=== PATIENT | female | born 1975 | race Caucasian/White ===

== ENCOUNTER → 2016-12-27 | Outpatient (REF) | payer OTHER ==
[2016-12-27 16:10] LABS: ALBUMIN 3.6 GM/DL (3.2-5.2); ALKALINE PHOSPHATASE 60 U/L (45-117); ALT/SGPT 18 U/L (12-78); ANION GAP 5 MEQ/L (8-16); AST/SGOT 12 U/L (15-37); BILIRUBIN,TOTAL 0.2 MG/DL (0.2-1.0); BLOOD UREA NITROGEN 10 MG/DL (7-18); CALCIUM LEVEL 8.6 MG/DL (8.5-10.1); CARBON DIOXIDE LEVEL 31 MEQ/L (21-32); CHLORIDE LEVEL 103 MEQ/L (98-107); CHOLESTEROL LEVEL 175 MG/DL (<200); CREATININE FOR GFR 0.63 MG/DL (0.55-1.02); GLOMERULAR FILTRATION RATE > 60.0 (>58); GLUCOSE, FASTING 122 MG/DL (70-105); POTASSIUM SERUM 4.3 MEQ/L (3.5-5.1); SODIUM LEVEL 139 MEQ/L (136-145); TOTAL PROTEIN 6.6 GM/DL (6.4-8.2); TRIGLYCERIDES LEVEL 404 MG/DL (<150)
== END ==
LOC: M SFHCSACK 08:49
PROVIDERS: ATTEND Physician Assistant
DX: I10 Essential (primary) hypertension (principal); F41.9 Anxiety disorder, unspecified; Z79.891 Long term (current) use of opiate analgesic

== ENCOUNTER → 2017-01-05 | Outpatient (REF) | payer OTHER | LOC: M SFHCSACK 11:56 | PROVIDERS: ATTEND Physician Assistant | DX: R73.9 Hyperglycemia, unspecified (principal) ==

== ENCOUNTER 2017-02-28 13:41 | Emergency (ER) | payer OTHER ==
[~2017-02-28] VITALS: Ht 172.7 cm; Wt 74.4 kg
[2017-02-28] MEDS ORDERED: LISI-538 PO (14:08)
[2017-02-28] MEDS ORDERED: XANA0.5T PO (14:08)
[2017-02-28] MEDS ORDERED: OXYC60TA8 PO (14:08)
[2017-02-28] MEDS ORDERED: METO37.5 PO (14:08)
[2017-02-28] MEDS ORDERED: REGL10TA6 PO (14:08)
[2017-02-28 15:59] LABS: BASO % 0.1 % (0.0-1.0); EOS # 0.1 K/mm3 (0.0-0.50); EOS % 0.8 % (0.0-3.0); LARGE UNSTAINED CELL % 0.3 % (0.0-4.0); LYMPH # 1.4 K/mm3 (1.5-4.5); LYMPH % 8.5 % (24.0-44.0); MEAN CORPUSCULAR HEMOGLOBIN 29.7 pg (27.0-33.0); MEAN CORPUSCULAR HGB CONC 34.8 g/dl (32.0-36.5); MEAN CORPUSCULAR VOLUME 85.4 fl (80.0-96.0); MONO # 0.2 K/mm3 (0.0-0.8); MONO % 1.2 % (0.0-5.0); NEUTROPHILS # 14.5 K/mm3 (1.8-7.7); NEUTROPHILS % 89.2 % (36.0-66.0); PLATELET COUNT, AUTOMATED 370 k/mm3 (150-450); RED CELL DISTRIBUTION WIDTH 13.4 % (11.5-14.5); WHITE BLOOD COUNT 16.3 K/mm3 (4.0-10.0)
[2017-02-28 16:16] LABS: CONTROL LINE HCG INT CTR LINE PRESENT
[2017-02-28 16:23] LABS: ALBUMIN 4.3 GM/DL (3.2-5.2); ALKALINE PHOSPHATASE 64 U/L (45-117); ALT/SGPT 19 U/L (12-78); AMYLASE 216 U/L (25-115); ANION GAP 11 MEQ/L (8-16); AST/SGOT 13 U/L (15-37); BILIRUBIN,DIRECT 0.2 MG/DL (0.0-0.2); BILIRUBIN,TOTAL 0.6 MG/DL (0.2-1.0); BLOOD UREA NITROGEN 14 MG/DL (7-18); CALCIUM LEVEL 9.2 MG/DL (8.5-10.1); CARBON DIOXIDE LEVEL 25 MEQ/L (21-32); CHLORIDE LEVEL 101 MEQ/L (98-107); CREATININE FOR GFR 0.72 MG/DL (0.55-1.02); GLOMERULAR FILTRATION RATE > 60.0 (>58); GLUCOSE, FASTING 95 MG/DL (70-105); POTASSIUM SERUM 3.4 MEQ/L (3.5-5.1); SODIUM LEVEL 137 MEQ/L (136-145); TOTAL PROTEIN 7.6 GM/DL (6.4-8.2)
[2017-02-28] MEDS ORDERED: ISOVUE-370 76% 100ML VIAL (Q9967) As Ordered ONE (16:30)
--- NOTE | 2017-02-28 16:59 | REP ---
Clinical: Trauma . Comparison: 06/27/2012 . Findings: The ventricles, sulci, and cisterns are normal in position and appearance. Epstein-white differentiation is maintained. No acute intracranial hemorrhage, mass/mass effect, pathology or trauma/injury. No evidence for acute infarction. No extra-axial fluid collection. Calvarium is intact. Paranasal sinuses and mastoid air cells are clear. Impression: Normal noncontrast head CT. No evidence for acute intracranial pathology or trauma/injury. Signed by Erwin Herrera MD 02/28/2017 04:51 P
[2017-02-28] MEDS: NS 1,000 ML IV ONE (17:00)
--- NOTE | 2017-02-28 17:00 | REP ---
Clinical: Trauma . Technique: Axial noncontrast images from the skull base to the thoracic inlet with coronal and sagittal re-formations Findings: Normal alignment and lordosis is maintained. Cervical vertebral bodies including transverse processes and spinous processes are intact and there is no evidence for acute fracture / compression injury or subluxation. Spinal canal is patent. Posterior elements are intact. Paravertebral soft tissues are normal. Impression: Normal noncontrast cervical spine CT. No evidence for acute pathology or trauma/injury. Signed by Erwin Herrera MD 02/28/2017 04:52 P
--- NOTE | 2017-02-28 17:03 | REP ---
Clinical: Trauma. Technique: Axial contrast enhanced images from the thoracic inlet to the upper abdomen using 100 ml Isovue 370 intravenous contrast material with coronal and sagittal re-formations. Findings: The bilateral lung meadows are symmetric, well aerated, and clear. Incidental note is made of an azygos fissure. No pulmonary parenchymal consolidation/contusion, effusion or pneumothorax. Tracheobronchial tree is patent. No adenopathy. The mediastinum is normal and without evidence for injury. The thoracic aorta and heart/pericardium are unremarkable. Surrounding musculoskeletal structures are intact without evidence for fracture or injury. Impression: Normal contrast enhanced chest CT. No evidence for acute trauma/injury. No evidence for mediastinal or pleuroparenchymal process. Signed by Erwin Herrera MD 02/28/2017 04:55 P
--- NOTE | 2017-02-28 17:06 | REP ---
Clinical: Trauma. Technique: Axial contrast enhanced images from the lung bases to the pubic symphysis using 100 ml Isovue 370 intravenous contrast material with coronal and sagittal re-formations. Findings: Lung bases are clear. Visualized heart and pericardium are normal. There is no evidence for solid organ injury. Liver, spleen, pancreas, bilateral adrenal glands and kidneys are normal. The patient is status post cholecystectomy. The enteric system is without obstruction or acute inflammatory process. Pelvis demonstrates normal bladder and age-appropriate uterus/adnexa. No ascites. No free air. No adenopathy. Vascular structures are intact and normal. Musculoskeletal structures are normal for age and without evidence for trauma/injury. Impression: Normal contrast enhanced CT of the abdomen and pelvis. No evidence for acute trauma/injury or pathology. Signed by Erwin Herrera MD 02/28/2017 04:57 P
--- NOTE | 2017-02-28 17:31 | REP ---
Clinical: Trauma . Technique: AP, lateral, bilateral oblique views right ankle . Findings: No acute fracture or dislocation. Skeletal structures and joint spaces are intact and normal. Ankle mortise appears stable. No subcutaneous emphysema or radiodense foreign body. Impression: Normal right ankle radiograph series. No acute fracture or dislocation. Signed by Erwin Herrera MD 02/28/2017 05:23 P
--- NOTE | 2017-02-28 17:31 | REP ---
Clinical: Trauma. Technique: AP, lateral, bilateral oblique and sunrise views of the left knee. Comparison: 11/24/2011. Findings: Age-related changes are appreciated primarily involving the patella and associated patellofemoral joint space including fraying along the anterior patellar margin. There is no evidence for acute fracture dislocation. Prepatellar soft tissue swelling is suggested and possibly related to trauma. No obvious effusion. Impression: Age-related degenerative changes. Prepatellar soft tissue swelling. No acute fracture or dislocation. Signed by Erwin Herrera MD 02/28/2017 05:22 P
[2017-02-28] MEDS: ACETAMINOPHEN TAB 650MG DOSE (2X325MG) PO ONE (17:51)
[2017-02-28 18:12] LABS: METHADONE URINE NEGATIVE (NEGATIVE)
[2017-02-28 19:14] VITALS: BP 171/80
--- NOTE | 2017-02-28 21:39 | ECGEPIP ---
Stationary ECG Study [facility] - ED Test Date: 2017-02-28 Pat Name: SUSAN DUONG Department: Room: - Gender: F Educational/Development Assistant: nakia : 1975 Requested By: MEENA Akins Order Number: [id number] Reading MD: Robert Call Measurements Intervals [place] Rate: 112 P: 50 UT: 132 QRS: -26 QRSD: 94 T: 30 QT: 326 QTc: 445 Interpretive Statements SINUS TACHYCARDIA POSSIBLE LEFT ATRIAL ENLARGEMENT BORDERLINE LEFT AXIS DEVIATION ABNORMAL RHYTHM ECG Electronically Signed On 02-28-2017 21:39:42 EDT by Robert Call
== END 2017-02-28 19:20 | disposition home or self-care (01) ==
LOC: M ED 16:32
DX: S80.02XA Contusion of left knee, initial encounter (principal); S16.1XXA Strain of muscle, fascia and tendon at neck level, initial encounter; S06.0X0A Concussion without loss of consciousness, initial encounter; S93.401A Sprain of unspecified ligament of right ankle, initial encounter; V47.5XXA Car driver injured in collision with fixed or stationary object in traffic accident, initial encounter; Y92.410 Unspecified street and highway as the place of occurrence of the external cause; Y93.89 Activity, other specified; Y99.9 Unspecified external cause status; I10 Essential (primary) hypertension; F41.9 Anxiety disorder, unspecified; F17.200 Nicotine dependence, unspecified, uncomplicated; Z79.899 Other long term (current) drug therapy
CPT/HCPCS: 36415; 70450; 71260; 72125; 73564; 73610; 74177; 80048; 80076; 80306; 81001; 82150; 82550; 82553; 83605; 83690; 84703; 85025; 85610; 85730; 87040; 87086; 93005; 93041; 94760; 99285; G0480; Q9967

== ENCOUNTER → 2017-04-22 | Outpatient (REF) | payer OTHER ==
[~2017-04-22] MED LIST: LISI-538 PO; METO37.5 PO; OXYC60TA8 PO; REGL10TA6 PO; XANA0.5T PO
[2017-04-22 16:02] LABS: ALBUMIN 3.6 GM/DL (3.2-5.2); ALBUMIN/GLOBULIN RATIO 1.13 (1.00-1.93); ALKALINE PHOSPHATASE 69 U/L (45-117); ALT/SGPT 35 U/L (12-78); ANION GAP 5 MEQ/L (8-16); AST/SGOT 19 U/L (15-37); BILIRUBIN,TOTAL 0.2 MG/DL (0.2-1.0); BLOOD UREA NITROGEN 11 MG/DL (7-18); CALCIUM LEVEL 8.5 MG/DL (8.5-10.1); CARBON DIOXIDE LEVEL 28 MEQ/L (21-32); CHLORIDE LEVEL 104 MEQ/L (98-107); CHOLESTEROL LEVEL 132 MG/DL (<200); CREATININE FOR GFR 0.64 MG/DL (0.55-1.02); FREE T4 0.69 NG/DL (0.76-1.46); GLOMERULAR FILTRATION RATE > 60.0 (>58); GLUCOSE, FASTING 106 MG/DL (70-105); POTASSIUM SERUM 4.1 MEQ/L (3.5-5.1); SODIUM LEVEL 137 MEQ/L (136-145); TOTAL PROTEIN 6.8 GM/DL (6.4-8.2); TRIGLYCERIDES LEVEL 200 MG/DL (<150)
== END ==
LOC: M SFHCSACK 11:36
PROVIDERS: ATTEND Physician Assistant
DX: F41.9 Anxiety disorder, unspecified (principal); I10 Essential (primary) hypertension; E78.2 Mixed hyperlipidemia

== ENCOUNTER → 2017-08-24 | Outpatient (REF) | payer OTHER ==
[2017-08-24 20:10] LABS: ALBUMIN 3.5 GM/DL (3.2-5.2); ALBUMIN/GLOBULIN RATIO 1.09 (1.00-1.93); ALKALINE PHOSPHATASE 66 U/L (45-117); ALT/SGPT 74 U/L (12-78); ANION GAP 4 MEQ/L (8-16); AST/SGOT 18 U/L (7-37); BILIRUBIN,TOTAL 0.3 MG/DL (0.2-1.0); BLOOD UREA NITROGEN 15 MG/DL (7-18); CALCIUM LEVEL 8.8 MG/DL (8.5-10.1); CARBON DIOXIDE LEVEL 37 MEQ/L (21-32); CHLORIDE LEVEL 102 MEQ/L (98-107); CHOLESTEROL LEVEL 191 MG/DL (<200); FREE T4 0.84 NG/DL (0.76-1.46); GLOMERULAR FILTRATION RATE > 60.0 (>58); GLUCOSE, FASTING 89 MG/DL (70-105); POTASSIUM SERUM 3.7 MEQ/L (3.5-5.1); SODIUM LEVEL 143 MEQ/L (136-145); TOTAL PROTEIN 6.7 GM/DL (6.4-8.2); TRIGLYCERIDES LEVEL 226 MG/DL (<150)
[2017-08-25 09:22] LABS: BASO % 0.2 % (0.0-1.0); EOS # 0.1 10^3/uL (0.0-0.50); EOS % 0.6 % (0.0-3.0); IMMATURE GRANULOCYTE % 0.4 % (0-0); LYMPH # 3.4 10^3/uL (1.5-4.5); LYMPH % 34.8 % (24.0-44.0); MEAN CORPUSCULAR HEMOGLOBIN 28.9 pg (27.0-33.0); MEAN CORPUSCULAR HGB CONC 30.4 g/dl (32.0-36.5); MEAN CORPUSCULAR VOLUME 95.1 fl (80.0-96.0); MONO # 0.5 10^3/uL (0.0-0.8); MONO % 4.6 % (0.0-5.0); NEUTROPHILS # 5.9 10^3/uL (1.8-7.7); NEUTROPHILS % 59.4 % (36.0-66.0); PLATELET COUNT, AUTOMATED 360 10^3/uL (150-450); RED CELL DISTRIBUTION WIDTH 15.1 % (11.5-14.5); WHITE BLOOD COUNT 9.8 10^3/uL (4.0-10.0)
== END ==
LOC: M SFHCSACK 15:39
PROVIDERS: ATTEND Physician Assistant
DX: R73.9 Hyperglycemia, unspecified (principal); F41.9 Anxiety disorder, unspecified; E78.2 Mixed hyperlipidemia; Z13.21 Encounter for screening for nutritional disorder

== ENCOUNTER 2024-09-15 02:48 | Inpatient (IN) | payer BC, MEDICARE, OTHER, SELFPAY ==
[~2024-09-15] VITALS: Ht 177.8 cm; Wt 77.2 kg
[2024-09-15] VITALS (60 sets, daily range): BP systolic 102–153; BP diastolic 50–69; TEMP 99.9–101.7; O2SAT 96–100
[~2024-09-15 02:48] MED LIST changes: -LISI-538 PO; +LISI20TA33 PO
[2024-09-15] MEDS: NS (Normal Saline) 0.9% 1,000 ML IV ONE ×6 (03:10→14:16)
[2024-09-15] MEDS: [UNRECOGNIZED DRUG - OTHER] IV ONE (03:15)
[2024-09-15] MEDS: NS 0.9% IV ONE (03:15)
[2024-09-15 03:19] LABS: VENOUS BASE EXCESS -21.2 (-2.0-2.0); VENOUS HCO3 7.1 MMOL/L (23.0-27.0); VENOUS O2 SATURATION 75.3 % (60.0-80.0); VENOUS PARTIAL PRESSURE CO2 24.4 mmHg (38.0-50.0); VENOUS PARTIAL PRESSURE O2 49.2 mmHg (30.0-50.0); VENOUS PH 7.084 UNITS (7.330-7.430); VENOUS STANDARD HCO3 9.1 MMOL/L; VENOUS TOTAL CO2 7.9 MMOL/L (24.0-28.0)
[2024-09-15] MEDS: SODIUM BICARBONATE 8.4% INJ 50ML SYRINGE IV STA (03:24)
[2024-09-15] MEDS: ONDANSETRON 4MG 2ML VIAL IV ONE (03:30)
[2024-09-15] MEDS: HumuLIN R (REGULAR) INSULIN (NovoLIN R) **100U/ML** PER UNIT IV ONE (03:31)
[2024-09-15 03:32] LABS: BASO % 0.1 % (0.0-1.0); HEMATOCRIT 42.9 % (36.0-47.0); HEMOGLOBIN 13.5 g/dl (12.0-15.5); LYMPH % 4.6 % (24.0-44.0); MEAN CORPUSCULAR HEMOGLOBIN 29.3 pg (27.0-33.0); MEAN CORPUSCULAR HGB CONC 31.5 g/dl (32.0-36.5); MEAN CORPUSCULAR VOLUME 93.3 fl (80.0-96.0); MONO # 1.2 10^3/uL (0.0-0.8); MONO % 5.1 % (2.0-8.0); NEUTROPHILS # 20.1 10^3/uL (1.5-8.5); NEUTROPHILS % 89.3 % (36.0-66.0); PLATELET COUNT, AUTOMATED 382 10^3/uL (150-450); WHITE BLOOD COUNT 22.5 10^3/uL (4.0-10.0)
[2024-09-15] MEDS ORDERED: ADENOSINE 6MG 2ML INJECTION As Ordered ONE (03:43)
[2024-09-15] MEDS ORDERED: MIDAZOLAM INJ 2MG/2ML VIAL As Ordered ONE (03:47)
[2024-09-15 03:54] LABS: AMPHETAMINES LEVEL URINE NEGATIVE (NEGATIVE); BARBITURATES URINE NEGATIVE (NEGATIVE); BENZODIAZEPINES URINE NEGATIVE (NEGATIVE); CANNABINOIDS URINE NEGATIVE (NEGATIVE); COCAINE METABOLITE URINE NEGATIVE (NEGATIVE); METHADONE URINE NEGATIVE (NEGATIVE); OPIATES URINE NEGATIVE (NEGATIVE); OSMOLALITY SERUM 388 MOSM/KG (275-295); PHENCYCLIDINE URINE NEGATIVE (NEGATIVE)
[2024-09-15 03:56] LABS: CK-MB VALUE MASS 4.6 NG/ML (<3.6); ETHYL ALCOHOL (ETHANOL) < 0.003 % (0.000-0.010)
[2024-09-15 03:58] LABS: CPK CREATINE PHOSPHOKINASE 351 U/L (34-145); MB/CK RELATIVE INDEX 1.31 (< OR =4); SALICYLATE LEVEL < 3.0 MG/DL (<30)
[2024-09-15] MEDS ORDERED: METOPROLOL 5 MG/5 ML VIAL As Ordered ONE (03:59)
[2024-09-15 04:00] LABS: THYROID STIMULATING HORMONE 0.615 uIU/ML (0.55-4.78)
[2024-09-15] MEDS: MIDAZOLAM INJ 2MG/2ML VIAL IV ONE ×2 (04:00→09:58)
[2024-09-15] MEDS: ADENOSINE 6MG 2ML INJECTION IV STA ×3 (04:00→05:10)
[2024-09-15] MEDS ORDERED: DIGOXIN INJ 0.5 MG/2 ML AMP As Ordered ONE (04:07)
[2024-09-15] MEDS ORDERED: PHENYLEPHRINE HCL INJ 50 MG in D5W 500 ML IV SCH (04:20)
[2024-09-15 04:21] LABS: ACETONE/KETONE > 4.50 MMOL/L (0.02-0.27); ALBUMIN 3.6 G/DL (3.2-5.2); ALKALINE PHOSPHATASE 94 U/L (35-104); ALT/SGPT 79 U/L (7.0-40); AST/SGOT 24 U/L (<34); BILIRUBIN,DIRECT 0.2 MG/DL (<0.4); BILIRUBIN,TOTAL 0.3 MG/DL (0.3-1.2); BLOOD UREA NITROGEN 74 MG/DL (9-23); CALCIUM LEVEL 9.2 MG/DL (8.5-10.1); CARBON DIOXIDE LEVEL < 10.0 MMOL/L (20-31); CHLORIDE LEVEL 73 MMOL/L (98-107); CREATININE FOR GFR 3.43 MG/DL (0.55-1.30); GLOMERULAR FILTRATION RATE 15.1 (>58); MAGNESIUM LEVEL 3.2 MG/DL (1.8-2.4); POTASSIUM SERUM 4.9 MMOL/L (3.5-5.1); SODIUM LEVEL 123 MMOL/L (136-145); TOTAL PROTEIN 6.8 G/DL (5.7-8.2)
[2024-09-15] MEDS ORDERED: PHENYLEPHRINE 10MG/ML 1ML VIAL As Ordered ONE (04:22)
[2024-09-15] MEDS ORDERED: NOREPINEPHRINE 4MG IN D5 250ML 4 MG in IV 1 EA IV SCH ×2 (04:25→07:25)
[2024-09-15 04:31] LABS: GLUCOSE, FASTING 1008 MG/DL (60-100)
[2024-09-15] MEDS: AMIODARONE 150MG/3ML VIAL IVP STA (04:34)
[2024-09-15] MEDS: ROCURONIUM BROMIDE 50MG/5ML VIAL IV SCH (05:00)
[2024-09-15] MEDS: ETOMIDATE INJ 20MG/10ML VIAL IV STA (05:05)
[2024-09-15] MEDS: DIGOXIN INJ 0.5 MG/2 ML AMP IV STA (05:07)
[2024-09-15] MEDS: METOPROLOL 5 MG/5 ML VIAL IV STA ×2 (05:07→05:09)
[2024-09-15 05:22] LABS: CK-MB VALUE MASS 3.8 NG/ML (<3.6)
[2024-09-15 05:23] LABS: MB/CK RELATIVE INDEX 1.38 (< OR =4)
[2024-09-15] MEDS: MIDAZOLAM 100MG/100ML-0.9%NACL 100 MG in IV 1 EA IV SCH (05:26)
[2024-09-15] MEDS: NS (Normal Saline) 0.9% 1,000 ML IV SCH (05:57)
[2024-09-15 06:09] LABS: ABG BASE EXCESS -16.5 (-2.0-2.0); ABG HCO3 11.6 MMOL/L (22.0-26.0); ABG O2 SATURATION 93.6 % (95.0-99.0); ABG PARTIAL PRESSURE CO2 35.5 mmHg (35.0-45.0); ABG PARTIAL PRESSURE O2 86.1 mmHg (75.0-100.0); ABG TOTAL CO2 12.7 MMOL/L (22.0-29.0)
[2024-09-15] MEDS: INSULIN REGULAR IN 0.9 % NACL 100 UNIT in IV 1 EA IV SCH ×2 (06:09→22:08)
[2024-09-15 06:13] LABS: ABG pH (ARTERIAL) 7.133 UNITS (7.350-7.450)
[2024-09-15] MEDS ORDERED: INSULIN REGULAR IN 0.9 % NACL 100 UNIT in IV 1 EA IV SCH (07:25)
[2024-09-15] MEDS ORDERED: INSULIN IV RATE CHANGE DOCUMENTATION ML/HR XX SCH (07:25)
[2024-09-15] MEDS ORDERED: ALBUTEROL SULFATE 2.5MG/0.5ML INH NEB SOLN NEB PRN (07:25)
[2024-09-15] MEDS: INSULIN IV RATE CHANGE DOCUMENTATION ML/HR XX SCH ×2 (07:36→22:09)
[2024-09-15] MEDS ORDERED: DEXMEDETOMIDINE IV ONE (08:30)
[2024-09-15] MEDS ORDERED: cefTRIAXone SOD 1 GM in DEXTROSE 5% (D5W) ADV/MINI-BAG 50 ML IV ONE (09:00)
[2024-09-15 09:16] LABS: CREATININE FOR GFR 2.4 MG/DL (0.55-1.30); GLOMERULAR FILTRATION RATE 22.8 (>58); MAGNESIUM LEVEL 2.4 MG/DL (1.8-2.4); PHOSPHORUS LEVEL 4.7 MG/DL (2.5-4.9); POTASSIUM SERUM 3.8 MMOL/L (3.5-5.1)
[2024-09-15] MEDS: cefTRIAXone SOD 1 GM in DEXTROSE 5% (D5W) ADV/MINI-BAG 50 ML IV SCH (09:24)
[2024-09-15] MEDS: dexmedeTOMidine 200 MCG in IV 1 EA IV SCH (10:10)
[2024-09-15 10:17] LABS: ABG BASE EXCESS -0.7 (-2.0-2.0); ABG O2 SATURATION 96.8 % (95.0-99.0); ABG PARTIAL PRESSURE CO2 30.4 mmHg (35.0-45.0); ABG PARTIAL PRESSURE O2 86.5 mmHg (75.0-100.0); ABG STANDARD HCO3 23.9 MMOL/L. (22.0-26.0); ABG TOTAL CO2 22.9 MMOL/L (22.0-29.0); ABG pH (ARTERIAL) 7.477 UNITS (7.350-7.450)
[2024-09-15] MEDS ORDERED: FENTANYL DRIP LOCK BOX KEY 1 EACH XX PRN (10:35)
[2024-09-15] MEDS ORDERED: VANCOMYCIN HCL 500 MG in DEXTROSE 5% (D5W) MINI-BAG PLU 100 ML IV ONE (10:35)
[2024-09-15] MEDS: fentaNYL CITRATE/NaCl 1,000 MCG in IV 1 EA IV SCH (10:51)
[2024-09-15] MEDS: LORazepam 2 MG/ML 1ML VIAL IV PRN (10:58)
[2024-09-15] MEDS: PANTOPRAZOLE 40MG VIAL IV SCH (11:07)
[2024-09-15] MEDS: VANCOMYCIN 1,250 MG/250 ML IV BAG *LOAD IV ONE (11:50)
[2024-09-15 12:35] LABS: VENOUS HCO3 24.1 MMOL/L (23.0-27.0); VENOUS O2 SATURATION 95.2 % (60.0-80.0); VENOUS PARTIAL PRESSURE CO2 41.7 mmHg (38.0-50.0); VENOUS PARTIAL PRESSURE O2 79.3 mmHg (30.0-50.0); VENOUS STANDARD HCO3 23.6 MMOL/L; VENOUS TOTAL CO2 25.4 MMOL/L (24.0-28.0)
[2024-09-15 13:13] LABS: CALCIUM LEVEL 7.9 MG/DL (8.5-10.1); CREATININE FOR GFR 1.93 MG/DL (0.55-1.30); GLOMERULAR FILTRATION RATE 29.4 (>58); PHOSPHORUS LEVEL 1.8 MG/DL (2.5-4.9); POTASSIUM SERUM 3.4 MMOL/L (3.5-5.1)
[2024-09-15] MEDS ORDERED: KCL 20MEQ IN 100ML SWI (KRUN) 20 MEQ in IV 1 EA IV ONE (13:15)
[2024-09-15 13:34] LABS: MAGNESIUM LEVEL 2.1 MG/DL (1.8-2.4)
[2024-09-15] MEDS: D5W/LR 1,000 ML IV SCH (13:39)
[2024-09-15] MEDS: KCL 10MEQ/100ML SWI (KRUN) IV SCH (14:16)
[2024-09-15] MEDS: HEPARIN SOD (PORCINE) 5000UNITS/ML 1ML VIAL/SYRINGE SC SCH (15:04)
[2024-09-15] MEDS: POTASSIUM PHOSPHATE INJ 30 MMOL in D5W 500 ML IV ONE (17:06)
[2024-09-15 17:14] LABS: VENOUS BASE EXCESS 3.3 (-2.0-2.0); VENOUS O2 SATURATION 98.9 % (60.0-80.0); VENOUS PARTIAL PRESSURE CO2 42.6 mmHg (38.0-50.0); VENOUS PARTIAL PRESSURE O2 203.2 mmHg (30.0-50.0); VENOUS PH 7.435 UNITS (7.330-7.430); VENOUS STANDARD HCO3 27.5 MMOL/L; VENOUS TOTAL CO2 29.3 MMOL/L (24.0-28.0)
[2024-09-15 17:44] LABS: CALCIUM LEVEL 7.6 MG/DL (8.5-10.1); CREATININE FOR GFR 1.73 MG/DL (0.55-1.30); GLOMERULAR FILTRATION RATE 33.3 (>58); PHOSPHORUS LEVEL 1.7 MG/DL (2.5-4.9); POTASSIUM SERUM 3.6 MMOL/L (3.5-5.1)
[2024-09-15] MEDS ORDERED: GLUCOSE 4 GM CHEW PO PRN (18:15)
[2024-09-15] MEDS ORDERED: DEXTROSE 50% 50ML SYRINGE IV PRN (18:15)
[2024-09-15] MEDS ORDERED: GLUCAGON INJ 1MG VIAL SC PRN (18:15)
[2024-09-15] MEDS: ACETAMINOPHEN *IV* 1,000 MG in IV 1 EA IV PRN (18:27)
[2024-09-15] MEDS: INSULIN LISPRO (NovoLOG) PER UNIT SC SCH (20:09)
[2024-09-15] MEDS: LEVEMIR (INSULIN DETEMIR) 1 UNITS/0.01ML SC SCH (20:09)
[2024-09-15] MEDS: MIDAZOLAM INJ 2MG/2ML VIAL IV PRN (20:12)
[2024-09-15 21:00] LABS: VENOUS BASE EXCESS -4.8 (-2.0-2.0); VENOUS HCO3 17.3 MMOL/L (23.0-27.0); VENOUS O2 SATURATION 99.1 % (60.0-80.0); VENOUS PARTIAL PRESSURE CO2 24.2 mmHg (38.0-50.0); VENOUS PARTIAL PRESSURE O2 212.9 mmHg (30.0-50.0); VENOUS PH 7.473 UNITS (7.330-7.430); VENOUS STANDARD HCO3 20.6 MMOL/L; VENOUS TOTAL CO2 18.1 MMOL/L (24.0-28.0)
[2024-09-15 21:44] LABS: CALCIUM LEVEL 7.1 MG/DL (8.5-10.1); CREATININE FOR GFR 1.66 MG/DL (0.55-1.30); MAGNESIUM LEVEL 1.9 MG/DL (1.8-2.4); PHOSPHORUS LEVEL 4.4 MG/DL (2.5-4.9); POTASSIUM SERUM 3.9 MMOL/L (3.5-5.1)
[2024-09-16] VITALS (75 sets, daily range): BP systolic 84–189; BP diastolic 49–101; TEMP 97.7–100.8; O2SAT 93–99
[2024-09-16] MEDS ORDERED: TRAZ-252 PO (00:07)
[2024-09-16] MEDS ORDERED: CLON0.2T PO (00:07)
[2024-09-16 00:51] LABS: VENOUS BASE EXCESS -0.2 (-2.0-2.0); VENOUS HCO3 23.5 MMOL/L (23.0-27.0); VENOUS O2 SATURATION 98.4 % (60.0-80.0); VENOUS PARTIAL PRESSURE O2 164.6 mmHg (30.0-50.0); VENOUS PH 7.444 UNITS (7.330-7.430); VENOUS STANDARD HCO3 24.3 MMOL/L; VENOUS TOTAL CO2 24.5 MMOL/L (24.0-28.0)
[2024-09-16 01:23] LABS: CALCIUM LEVEL 7.4 MG/DL (8.5-10.1); CREATININE FOR GFR 1.67 MG/DL (0.55-1.30); GLOMERULAR FILTRATION RATE 34.7 (>58); PHOSPHORUS LEVEL 3.8 MG/DL (2.5-4.9); POTASSIUM SERUM 3.2 MMOL/L (3.5-5.1)
[2024-09-16] MEDS: KCL 10MEQ/100ML SWI (KRUN) 10 MEQ in IV 1 EA IV SCH (01:59)
[2024-09-16] MEDS: LR 1,000 ML IV SCH (01:59)
[2024-09-16] MEDS: POTASSIUM CHLORIDE 10% LIQ 20MEQ/15ML UDC PO ONE (01:59)
[2024-09-16 04:47] LABS: VENOUS BASE EXCESS 3.9 (-2.0-2.0); VENOUS HCO3 28.1 MMOL/L (23.0-27.0); VENOUS O2 SATURATION 87.9 % (60.0-80.0); VENOUS PARTIAL PRESSURE CO2 40.7 mmHg (38.0-50.0); VENOUS PARTIAL PRESSURE O2 52.2 mmHg (30.0-50.0); VENOUS PH 7.457 UNITS (7.330-7.430); VENOUS STANDARD HCO3 27.8 MMOL/L; VENOUS TOTAL CO2 29.4 MMOL/L (24.0-28.0)
[2024-09-16 04:51] LABS: HEMATOCRIT 30.2 % (36.0-47.0); MEAN CORPUSCULAR HEMOGLOBIN 29.1 pg (27.0-33.0); MEAN CORPUSCULAR HGB CONC 35.1 g/dl (32.0-36.5); PLATELET COUNT, AUTOMATED 162 10^3/uL (150-450); RED BLOOD COUNT 3.64 10^6/uL (4.00-5.40); WHITE BLOOD COUNT 4.6 10^3/uL (4.0-10.0)
[2024-09-16 05:23] LABS: HEMOGLOBIN 10.6 g/dl (12.0-15.5)
[2024-09-16 05:38] LABS: PROCALCITONIN 18.22 ng/ml
[2024-09-16 05:44] LABS: ALBUMIN 2.2 G/DL (3.2-5.2); BILIRUBIN,TOTAL 0.2 MG/DL (0.3-1.2); CALCIUM LEVEL 7.7 MG/DL (8.5-10.1); CREATININE FOR GFR 1.54 MG/DL (0.55-1.30); GLOMERULAR FILTRATION RATE 38.1 (>58); MB/CK RELATIVE INDEX 1.39 (< OR =4); PHOSPHORUS LEVEL 3.4 MG/DL (2.5-4.9)
[2024-09-16 05:56] LABS: ABG BASE EXCESS 2.3 (-2.0-2.0); ABG HCO3 25.7 MMOL/L (22.0-26.0); ABG PARTIAL PRESSURE CO2 35.3 mmHg (35.0-45.0); ABG PARTIAL PRESSURE O2 88.3 mmHg (75.0-100.0); ABG STANDARD HCO3 26.6 MMOL/L. (22.0-26.0); ABG TOTAL CO2 26.8 MMOL/L (22.0-29.0)
[2024-09-16 05:58] LABS: ANISOCYTOSIS 1+; EOSINOPHILS 1 % (0-3); HYPOCHROMASIA 1+; LYMPHOCYTES 20 % (16-44); MONOCYTES 4 % (0-5); NEUTROPHILS 63 % (28-66); PLATELET ESTIMATE NORMAL (NORMAL)
[2024-09-16] MEDS: LEVEMIR (INSULIN DETEMIR) 1 UNITS/0.01ML SC SCH (09:37)
[2024-09-16] MEDS: D5W 1,000 ML IV SCH (09:42)
[2024-09-16] MEDS ORDERED: VANCOMYCIN HCL 750 MG, VIAL MATE ADAPTER 1 EACH in NS 250 ML IV SCH (10:00)
[2024-09-16] MEDS: AZITHROMYCIN INJ 500 MG, VIAL MATE ADAPTER 1 EACH in NS 250 ML IV SCH (11:09)
[2024-09-16] MEDS: cloNIDine HCL 0.1 MG/24 HR PATCH TOP ONE (13:28)
[2024-09-16 14:06] LABS: CALCIUM LEVEL 8.4 MG/DL (8.5-10.1); CREATININE FOR GFR 1.48 MG/DL (0.55-1.30); GLOMERULAR FILTRATION RATE 39.9 (>58); PHOSPHORUS LEVEL 2.2 MG/DL (2.5-4.9); POTASSIUM SERUM 3.5 MMOL/L (3.5-5.1)
[2024-09-16] MEDS ORDERED: CLON0.3T PO (14:35)
[2024-09-16] MEDS ORDERED: HYDR12CA PO (14:36)
[2024-09-16] MEDS ORDERED: OXYC7.5T3 PO (14:36)
[2024-09-16] MEDS ORDERED: HOME MED LIST COMPLETE! XX SCH (14:40)
[2024-09-16] MEDS: LABETALOL 100MG/20ML VIAL IV STA (14:44)
[2024-09-16] MEDS: D5W/0.45% SODIUM CHLORIDE 1,000 ML IV ONE (15:08)
[2024-09-16] MEDS ORDERED: DEXTROSE 50% 50ML SYRINGE IV PRN (15:35)
[2024-09-16] MEDS ORDERED: GLUCOSE 4 GM CHEW PO PRN (15:35)
[2024-09-16] MEDS ORDERED: GLUCAGON INJ 1MG VIAL SC PRN (15:35)
[2024-09-16] MEDS: POTASSIUM PHOSPHATE INJ 30 MMOL in D5W 500 ML IV ONE (16:31)
[2024-09-16] MEDS: INSULIN LISPRO (NovoLOG) PER UNIT SC SCH (17:54)
[2024-09-16] MEDS: LABETALOL 100MG/20ML VIAL IV PRN (17:54)
[2024-09-16] MEDS: PROMETHAZINE 25MG/ML 1ML VIAL IV PRN (23:03)
[2024-09-17] VITALS (18 sets, daily range): BP systolic 149–186; BP diastolic 70–89; TEMP 98.9–100.6; O2SAT 90–98
[2024-09-17 05:49] LABS: EOS % 0.3 % (0.0-3.0); HEMATOCRIT 31.6 % (36.0-47.0); HEMOGLOBIN 10.6 g/dl (12.0-15.5); LYMPH # 1.1 10^3/uL (1.5-5.0); LYMPH % 17.5 % (24.0-44.0); MEAN CORPUSCULAR HEMOGLOBIN 28.5 pg (27.0-33.0); MEAN CORPUSCULAR HGB CONC 33.5 g/dl (32.0-36.5); MEAN CORPUSCULAR VOLUME 84.9 fl (80.0-96.0); MONO # 0.3 10^3/uL (0.0-0.8); NEUTROPHILS % 77.9 % (36.0-66.0); PLATELET COUNT, AUTOMATED 164 10^3/uL (150-450); RED BLOOD COUNT 3.72 10^6/uL (4.00-5.40); WHITE BLOOD COUNT 6.5 10^3/uL (4.0-10.0)
[2024-09-17 06:15] LABS: ALBUMIN 2.3 G/DL (3.2-5.2); BILIRUBIN,TOTAL 0.4 MG/DL (0.3-1.2); CALCIUM LEVEL 8.4 MG/DL (8.5-10.1); CREATININE FOR GFR 1.28 MG/DL (0.55-1.30); GLOMERULAR FILTRATION RATE 47.2 (>58); MAGNESIUM LEVEL 1.6 MG/DL (1.8-2.4); PHOSPHORUS LEVEL 3.4 MG/DL (2.5-4.9); POTASSIUM SERUM 2.9 MMOL/L (3.5-5.1)
[2024-09-17] MEDS: POTASSIUM CHLORIDE 10% LIQ 20MEQ/15ML UDC PO ONE (06:36)
[2024-09-17] MEDS: MAG SULF 1GM/100ML (MAG RUN) 1 GM in IV 1 EA IV ONE (06:36)
[2024-09-17] MEDS: KCL 10MEQ/100ML SWI (KRUN) 10 MEQ in IV 1 EA IV SCH (07:30)
[2024-09-17] MEDS: cloNIDine 0.1MG TABLET PO SCH (09:34)
[2024-09-17] MEDS: POTASSIUM CHLORIDE 10MEQ SR TABLET PO ONE ×2 (12:39→18:02)
[2024-09-17] MEDS: ENOXAPARIN 40MG/0.4ML SYRINGE (J1650 PER 10MG) SC SCH (12:39)
[2024-09-17 13:23] LABS: HEMOGLOBIN A1c > 14.0 % (4.0-6.0)
[2024-09-17] MEDS: INSULIN LISPRO (NovoLOG) PER UNIT SC SCH ×2 (18:02→20:59)
[2024-09-17] MEDS: cloNIDine 0.2 MG TAB PO SCH (20:06)
[2024-09-17] MEDS: traZODone 50 MG TAB PO SCH (20:10)
[2024-09-17] MEDS: PANTOPRAZOLE 40MG VIAL IV SCH (21:04)
[2024-09-17] MEDS: **hydrALAZINE** 50 MG TAB PO SCH (21:05)
[2024-09-17 22:08] LABS: BLOOD UREA NITROGEN 25 MG/DL (9-23); CALCIUM LEVEL 8.4 MG/DL (8.5-10.1); CARBON DIOXIDE LEVEL 29 MMOL/L (20-31); CHLORIDE LEVEL 108 MMOL/L (98-107); CREATININE FOR GFR 1.02 MG/DL (0.55-1.30); GLOMERULAR FILTRATION RATE > 60.0 (>58); GLUCOSE, FASTING 169 MG/DL (60-100); MAGNESIUM LEVEL 1.7 MG/DL (1.8-2.4); POTASSIUM SERUM 3.6 MMOL/L (3.5-5.1); SODIUM LEVEL 145 MMOL/L (136-145)
[2024-09-17] MEDS: ACETAMINOPHEN 325 MG TAB PO PRN (23:42)
[2024-09-18] VITALS: BP 130/61; TEMP 97.8; O2SAT 93
[2024-09-18] MEDS: MAG SULF 1GM/100ML (MAG RUN) 1 GM in IV 1 EA IV ONE ×2 (03:52→14:25)
[2024-09-18 04:00] VITALS: BP 139/74; TEMP 98.1; O2SAT 94
[2024-09-18 04:51] LABS: HEMATOCRIT 34.4 % (36.0-47.0); HEMOGLOBIN 10.9 g/dl (12.0-15.5); MEAN CORPUSCULAR HEMOGLOBIN 28.2 pg (27.0-33.0); MEAN CORPUSCULAR HGB CONC 31.7 g/dl (32.0-36.5); MEAN CORPUSCULAR VOLUME 88.9 fl (80.0-96.0); PLATELET COUNT, AUTOMATED 180 10^3/uL (150-450); RED BLOOD COUNT 3.87 10^6/uL (4.00-5.40)
[2024-09-18 05:10] LABS: BLOOD UREA NITROGEN 24 MG/DL (9-23); CALCIUM LEVEL 8.8 MG/DL (8.5-10.1); CARBON DIOXIDE LEVEL 26 MMOL/L (20-31); CHLORIDE LEVEL 104 MMOL/L (98-107); CREATININE FOR GFR 0.98 MG/DL (0.55-1.30); GLOMERULAR FILTRATION RATE > 60.0 (>58); GLUCOSE, FASTING 287 MG/DL (60-100); MAGNESIUM LEVEL 1.7 MG/DL (1.8-2.4); PHOSPHORUS LEVEL 2.2 MG/DL (2.5-4.9); POTASSIUM SERUM 3.6 MMOL/L (3.5-5.1); SODIUM LEVEL 142 MMOL/L (136-145)
[2024-09-18 08:00] VITALS: BP 160/92; TEMP 99.1; O2SAT 95
[2024-09-18] MEDS: CEFDINIR 300 MG CAP (OMNICEF) PO SCH (08:37)
[2024-09-18] MEDS: cloNIDine 0.1MG TABLET PO SCH (08:38)
[2024-09-18] MEDS: AZITHROMYCIN 250MG TABLET PO SCH (08:39)
[2024-09-18] MEDS: POTASSIUM CHLORIDE 10MEQ SR TABLET PO SCH (08:39)
[2024-09-18 12:00] VITALS: BP 123/61; TEMP 99.6; O2SAT 98
[2024-09-18] MEDS ORDERED: ISOVUE-370 76% 100ML VIAL As Ordered ONE (13:45)
[2024-09-18] MEDS: LOPERAMIDE 2 MG CAPLET PO ONE (14:24)
[2024-09-18] MEDS: PERCOCET 5MG/325MG TAB PO PRN (14:26)
[2024-09-18] MEDS: HYDROMORPHONE HCL 0.5 MG/ 0.5 ML SYRINGE IV ONE (14:27)
[2024-09-18] MEDS: FLUCONAZOLE 50MG TABLET PO ONE (14:31)
[2024-09-18] MEDS: ASPIRIN 81MG CHEW TABLET PO SCH (15:07)
[2024-09-18 16:00] VITALS: BP 154/78; TEMP 99.2; O2SAT 95
[2024-09-18] MEDS: LACTOBACILLUS ACIDOPHILUS CAP (BACID) PO SCH (17:07)
[2024-09-18] MEDS: METOPROLOL TART 25 MG TABLET PO SCH (17:13)
[2024-09-18 20:00] VITALS: BP 155/74; TEMP 98.7; O2SAT 94
[2024-09-18] MEDS ORDERED: LEVEMIR (INSULIN DETEMIR) 1 UNITS/0.01ML SC SCH (21:00)
[2024-09-19] VITALS: BP 145/72; TEMP 97.8; O2SAT 95
[2024-09-19 04:00] VITALS: BP 145/67; TEMP 97.6; O2SAT 94
[2024-09-19] MEDS: LOPERAMIDE 2 MG CAPLET PO PRN (04:06)
[2024-09-19 04:37] LABS: BASO % 0.2 % (0.0-1.0); EOS % 0.3 % (0.0-3.0); HEMATOCRIT 37.2 % (36.0-47.0); HEMOGLOBIN 12.1 g/dl (12.0-15.5); LYMPH # 1.3 10^3/uL (1.5-5.0); LYMPH % 13.7 % (24.0-44.0); MEAN CORPUSCULAR HEMOGLOBIN 28.8 pg (27.0-33.0); MEAN CORPUSCULAR HGB CONC 32.5 g/dl (32.0-36.5); MEAN CORPUSCULAR VOLUME 88.6 fl (80.0-96.0); MONO # 0.6 10^3/uL (0.0-0.8); MONO % 6.1 % (2.0-8.0); NEUTROPHILS # 7.7 10^3/uL (1.5-8.5); NEUTROPHILS % 79.1 % (36.0-66.0); PLATELET COUNT, AUTOMATED 219 10^3/uL (150-450); WHITE BLOOD COUNT 9.7 10^3/uL (4.0-10.0)
[2024-09-19 05:02] LABS: BLOOD UREA NITROGEN 16 MG/DL (9-23); CALCIUM LEVEL 8.7 MG/DL (8.5-10.1); CARBON DIOXIDE LEVEL 24 MMOL/L (20-31); CHLORIDE LEVEL 102 MMOL/L (98-107); CHOLESTEROL LEVEL 126 MG/DL (<200); GLOMERULAR FILTRATION RATE > 60.0 (>58); GLUCOSE, FASTING 248 MG/DL (60-100); HDL CHOLESTEROL 39.3 MG/DL (>40); LDL CHOLESTEROL 48.9 MG/DL (<100); NON-HDL-C 86.7 MG/DL; POTASSIUM SERUM 3.5 MMOL/L (3.5-5.1); SODIUM LEVEL 140 MMOL/L (136-145); TRIGLYCERIDES LEVEL 189 MG/DL (<150)
[2024-09-19 08:00] VITALS: BP 152/67; TEMP 98.1; O2SAT 96
[2024-09-19] MEDS: LEVEMIR (INSULIN DETEMIR) 1 UNITS/0.01ML SC SCH (09:16)
[2024-09-19] MEDS: METOPROLOL TART 25 MG TABLET PO SCH (09:22)
[2024-09-19] MEDS ORDERED: LIDOCAINE VISCOUS 2% SOLN 15ML UDC SS PRN (10:50)
[2024-09-19 10:54] LABS: ALBUMIN 2.7 G/DL (3.2-5.2); ALKALINE PHOSPHATASE 68 U/L (35-104); ALT/SGPT 30 U/L (7.0-40); AST/SGOT 18 U/L (<34); BILIRUBIN,DIRECT 0.2 MG/DL (<0.4); BILIRUBIN,TOTAL 0.5 MG/DL (0.3-1.2)
[2024-09-19] MEDS: INSULIN LISPRO (NovoLOG) PER UNIT SC SCH (13:20)
[2024-09-19 20:00] VITALS: BP 156/79; TEMP 98.6; O2SAT 95
[2024-09-19] MEDS ORDERED: PILL CUTTER 1 EACH XX PRN (20:10)
[2024-09-19] MEDS ORDERED: RISATAB3 PO (20:13)
[2024-09-19] MEDS ORDERED: CEFD300CAP PO (20:13)
[2024-09-19] MEDS ORDERED: ASPI81CH8 PO (20:13)
[2024-09-19] MEDS ORDERED: FLUC100T3 PO (20:13)
[2024-09-19] MEDS ORDERED: METO1TAB7 PO (20:13)
[2024-09-19] MEDS ORDERED: LANTINJ4 SC (20:23)
[2024-09-19] MEDS ORDERED: BLOOKIT21 XX (20:23)
[2024-09-19] MEDS ORDERED: LANC30MI XX (20:23)
[2024-09-19] MEDS ORDERED: GLUC1TES2 XX (20:23)
[2024-09-19] MEDS ORDERED: TALK1KIT MC (20:23)
[2024-09-19] MEDS ORDERED: INSU100I16 SQ (20:23)
[2024-09-19] MEDS ORDERED: ALCOPAD25 TOP (20:23)
[2024-09-19] MEDS ORDERED: PEN-308 SC (20:23)
[2024-09-19] MEDS: METOPROLOL TART 25 MG TABLET PO ONE (21:10)
[2024-09-20] VITALS (13 sets, daily range): BP systolic 154–208; BP diastolic 83–102; TEMP 98.4; O2SAT 96–99
[2024-09-20 05:07] LABS: BASO % 0.2 % (0.0-1.0); EOS # 0.1 10^3/uL (0.0-0.5); EOS % 1.2 % (0.0-3.0); HEMATOCRIT 32.6 % (36.0-47.0); HEMOGLOBIN 10.5 g/dl (12.0-15.5); LYMPH # 1.7 10^3/uL (1.5-5.0); LYMPH % 20.6 % (24.0-44.0); MEAN CORPUSCULAR HEMOGLOBIN 28.4 pg (27.0-33.0); MEAN CORPUSCULAR HGB CONC 32.2 g/dl (32.0-36.5); MEAN CORPUSCULAR VOLUME 88.1 fl (80.0-96.0); MONO # 0.8 10^3/uL (0.0-0.8); MONO % 9.1 % (2.0-8.0); NEUTROPHILS # 5.6 10^3/uL (1.5-8.5); NEUTROPHILS % 67.1 % (36.0-66.0); PLATELET COUNT, AUTOMATED 250 10^3/uL (150-450); WHITE BLOOD COUNT 8.3 10^3/uL (4.0-10.0)
[2024-09-20 05:32] LABS: BLOOD UREA NITROGEN 12 MG/DL (9-23); CALCIUM LEVEL 8.7 MG/DL (8.5-10.1); CARBON DIOXIDE LEVEL 25 MMOL/L (20-31); CHLORIDE LEVEL 102 MMOL/L (98-107); CREATININE FOR GFR 0.76 MG/DL (0.55-1.30); GLOMERULAR FILTRATION RATE > 60.0 (>58); GLUCOSE, FASTING 209 MG/DL (60-100); POTASSIUM SERUM 3.4 MMOL/L (3.5-5.1); SODIUM LEVEL 139 MMOL/L (136-145)
[2024-09-20] MEDS: FLUCONAZOLE 100 MG TAB PO SCH (09:31)
[2024-09-20] MEDS: METOPROLOL SUCC (TopROL XL) 50MG **XL** TAB PO SCH (09:31)
[2024-09-20] MEDS ORDERED: PERCOCET PO (10:58)
[2024-09-20] MEDS ORDERED: AMLO10TA PO (12:11)
[2024-09-20] MEDS: POTASSIUM CHLORIDE 10MEQ SR TABLET PO ONE (12:48)
[2024-09-20] MEDS ORDERED: CLONI1TA PO (13:34)
[2024-09-20] MEDS: cloNIDine 0.1MG TABLET PO ONE ×2 (13:49→14:51)
[2024-09-20] MEDS ORDERED: cloNIDine 0.2 MG TAB PO SCH (21:00)
[2024-09-20] MEDS ORDERED: cloNIDine 0.1MG TABLET PO SCH (21:00)
[2024-09-21] MEDS ORDERED: cloNIDine 0.2 MG TAB PO SCH (21:00)
== END 2024-09-20 15:15 | disposition home or self-care (01) | DRG 720 ==
LOC: M ED 02:48 → M ED INP 07:24 → M ICU 09:54
PROVIDERS: ADMIT Internal Medicine Critical Care Medicine; ATTEND Internal Medicine Critical Care Medicine
PROC: 5A2204Z Restoration of Cardiac Rhythm, Single (ICD-10-PCS; principal; 2024-09-15)
PROC: 5A1935Z Respiratory Ventilation, Less than 24 Consecutive Hours (ICD-10-PCS; 2024-09-15)
PROC: B246ZZZ Ultrasonography of Right and Left Heart (ICD-10-PCS; 2024-09-17)
DX: A41.9 Sepsis, unspecified organism (principal); J96.01 Acute respiratory failure with hypoxia; I21.A1 Myocardial infarction type 2; N17.0 Acute kidney failure with tubular necrosis; R57.1 Hypovolemic shock; E11.11 Type 2 diabetes mellitus with ketoacidosis with coma; G93.41 Metabolic encephalopathy; R65.21 Severe sepsis with septic shock; J15.69 Pneumonia due to other Gram-negative bacteria; E83.42 Hypomagnesemia; I47.10 Supraventricular tachycardia, unspecified; I48.91 Unspecified atrial fibrillation; E87.1 Hypo-osmolality and hyponatremia; I16.0 Hypertensive urgency; G89.29 Other chronic pain; N39.0 Urinary tract infection, site not specified; K21.9 Gastro-esophageal reflux disease without esophagitis; I10 Essential (primary) hypertension; E87.6 Hypokalemia; G40.909 Epilepsy, unspecified, not intractable, without status epilepticus; F17.200 Nicotine dependence, unspecified, uncomplicated; M54.9 Dorsalgia, unspecified; Z79.891 Long term (current) use of opiate analgesic; Z79.899 Other long term (current) drug therapy; Z88.6 Allergy status to analgesic agent; Z90.49 Acquired absence of other specified parts of digestive tract; B96.1 Klebsiella pneumoniae [K. pneumoniae] as the cause of diseases classified elsewhere; B95.1 Streptococcus, group B, as the cause of diseases classified elsewhere

== ENCOUNTER → 2024-09-28 | Outpatient (CLI) | payer SELFPAY ==
[~2024-09-28] MED LIST changes: +ALCOPAD25 TOP; +AMLO10TA PO; +ASPI81CH8 PO; +BLOOKIT21 XX; +CEFD300CAP PO; +CLON0.2T PO; +CLON0.3T PO; +CLONI1TA PO; +FLUC100T3 PO; +GLUC1TES2 XX; +HYDR12CA PO; +INSU100I16 SQ; +LANC30MI XX; +LANTINJ4 SC; +METO1TAB7 PO; +OXYC7.5T3 PO; +PEN-308 SC; +PERCOCET PO; +RISATAB3 PO; +TALK1KIT MC; +TRAZ-252 PO
== END ==
LOC: M CLY 07:45
PROVIDERS: ATTEND Physician Assistant
DX: M47.896 Other spondylosis, lumbar region (principal)

== ENCOUNTER → 2024-09-28 | Outpatient (REF) | payer SELFPAY, OTHER ==
[2024-09-28 12:40] LABS: ALBUMIN 3.4 G/DL (3.2-5.2); ALKALINE PHOSPHATASE 62 U/L (35-104); ALT/SGPT 23 U/L (7.0-40); AST/SGOT 17 U/L (<34); BILIRUBIN,TOTAL 0.2 MG/DL (0.3-1.2); BLOOD UREA NITROGEN 18 MG/DL (9-23); CALCIUM LEVEL 10.1 MG/DL (8.5-10.1); CARBON DIOXIDE LEVEL 29 MMOL/L (20-31); CHLORIDE LEVEL 99 MMOL/L (98-107); CHOLESTEROL LEVEL 219 MG/DL (<200); CREATININE FOR GFR 0.54 MG/DL (0.55-1.30); GLOMERULAR FILTRATION RATE > 60.0 (>58); GLUCOSE, FASTING 217 MG/DL (60-100); HDL CHOLESTEROL 48.6 MG/DL (>40); LDL CHOLESTEROL 100.2 MG/DL (<100); NON-HDL-C 170.4 MG/DL; POTASSIUM SERUM 4.2 MMOL/L (3.5-5.1); SODIUM LEVEL 137 MMOL/L (136-145); TOTAL PROTEIN 7.4 G/DL (5.7-8.2); TRIGLYCERIDES LEVEL 351 MG/DL (<150)
[2024-09-28 13:18] LABS: HEMOGLOBIN A1c > 14.0 % (4.0-6.0)
== END ==
LOC: M SFHCCLAY 07:32
PROVIDERS: ATTEND Physician Assistant
DX: M54.50 Low back pain, unspecified (principal); E11.65 Type 2 diabetes mellitus with hyperglycemia; I10 Essential (primary) hypertension

== ENCOUNTER → 2024-11-27 | Outpatient (REF) | payer SELFPAY | LOC: M SFHCCLAY 16:25 | PROVIDERS: ATTEND Physician Assistant | DX: M54.50 Low back pain, unspecified (principal) ==

== ENCOUNTER → 2024-12-05 | Outpatient (POV) | payer SELFPAY ==
[~2024-12-05] VITALS: Ht 177.8 cm; Wt 80.9 kg
[~2024-12-05] MED LIST changes: +METO1TAB33 PO
[2024-12-05 10:12] VITALS: BP 144/80; O2SAT 100
== END ==
LOC: M IRPOV 10:04
PROVIDERS: ATTEND Radiology Diagnostic Radiology
DX: I70.1 Atherosclerosis of renal artery (principal); I10 Essential (primary) hypertension; E11.9 Type 2 diabetes mellitus without complications; K21.9 Gastro-esophageal reflux disease without esophagitis; Z79.899 Other long term (current) drug therapy